=== PATIENT | male | born 1960 | race Two or more races ===

== ENCOUNTER 2017-09-23 17:13 | Emergency (ER) | payer OTHER ==
[~2017-09-23] VITALS: Ht 165.1 cm; Wt 74.8 kg
[~2017-09-23 17:13] MED LIST: KETO10TA2 PO; ORPH100T PO
== END 2017-09-23 22:18 | disposition home or self-care (01) ==
LOC: ER 17:13
DX: B34.9 Viral infection, unspecified (principal); E86.0 Dehydration

== ENCOUNTER 2018-02-20 07:15 | Emergency (ER) | payer OTHER ==
[~2018-02-20] VITALS: Ht 162.6 cm; Wt 68.0 kg
== END 2018-02-20 14:35 | disposition home or self-care (01) ==
LOC: ER 07:15
DX: R33.8 Other retention of urine (principal); N39.0 Urinary tract infection, site not specified

== ENCOUNTER → 2018-05-16 12:39 | Outpatient (CLI) | payer OTHER | END | disposition home or self-care (01) | LOC: RAD 12:39 | DX: N20.0 Calculus of kidney (principal) ==

== ENCOUNTER 2018-10-21 17:43 | Inpatient (IN) | payer OTHER ==
[~2018-10-21] VITALS: Ht 162.6 cm; Wt 68.0 kg
[2018-10-26] MEDS ORDERED: CEFDINIR300 MG PO (10:19)
[2018-10-26] MEDS ORDERED: AZITHROMYCIN500 MG PO (10:19)
[2018-10-26] MEDS ORDERED: ZANTAC150 M3 PO (10:20)
[2018-10-26] MEDS ORDERED: INTESTINEX680 M1 PO (10:20)
[2018-10-26] MEDS ORDERED: SYMBICORT 16010.2 GM IH (10:23)
[2018-10-26] MEDS ORDERED: PREDNISONE10 MG PO (10:26)
[2018-10-26] MEDS ORDERED: Neurin-Sl Tablet Sl SL (10:27)
== END 2018-10-26 12:07 | disposition home or self-care (01) | DRG 190 ==
LOC: ER 17:43 → EDBD 17:59 → ER 17:59 → MEDI 10-22 11:35 → SEC-K 10-22 13:06 → MEDI 10-22 13:47
PROVIDERS: ADMIT Internal Medicine
PROC: BW24ZZZ Computerized Tomography (CT Scan) of Chest and Abdomen (ICD-10-PCS; principal; 2018-10-22)
PROC: 4A033R1 Measurement of Arterial Saturation, Peripheral, Percutaneous Approach (ICD-10-PCS; 2018-10-22)
PROC: 3E0F7GC Introduction of Other Therapeutic Substance into Respiratory Tract, Via Natural or Artificial Opening (ICD-10-PCS; 2018-10-22)
DX: J44.1 Chronic obstructive pulmonary disease with (acute) exacerbation (principal); J80 Acute respiratory distress syndrome; J45.31 Mild persistent asthma with (acute) exacerbation; N39.0 Urinary tract infection, site not specified; J21.8 Acute bronchiolitis due to other specified organisms; J45.41 Moderate persistent asthma with (acute) exacerbation; F10.20 Alcohol dependence, uncomplicated; F17.218 Nicotine dependence, cigarettes, with other nicotine-induced disorders; N43.2 Other hydrocele; E86.0 Dehydration; E87.8 Other disorders of electrolyte and fluid balance, not elsewhere classified; R33.9 Retention of urine, unspecified

== ENCOUNTER 2019-10-11 00:16 | Emergency (ER) | payer OTHER ==
[~2019-10-11] VITALS: Ht 165.1 cm; Wt 85.3 kg
[~2019-10-11 00:16] MED LIST changes: +AZITHROMYCIN500 MG PO; +CEFDINIR300 MG PO; +INTESTINEX680 M1 PO; +Neurin-Sl Tablet Sl SL; +PREDNISONE10 MG PO; +SYMBICORT 16010.2 GM IH; +ZANTAC150 M3 PO
[2019-10-11] MEDS ORDERED: BACTRIM DS TAB1 EACH PO (06:35)
[2019-10-11] MEDS ORDERED: KETO10TA2 PO (06:35)
== END 2019-10-11 06:43 | disposition home or self-care (01) ==
LOC: ER 00:16
DX: N39.0 Urinary tract infection, site not specified (principal); R10.31 Right lower quadrant pain

== ENCOUNTER 2020-02-20 18:27 | Day surgery (SDC) | payer OTHER ==
[~2020-02-20] VITALS: Ht 165.1 cm; Wt 74.8 kg
[~2020-02-20 18:27] MED LIST changes: +BACTRIM DS TAB1 EACH PO
== END 2020-02-21 13:00 | disposition home or self-care (01) ==
LOC: ER 18:27 → CIR.AMB 02-21 07:00 → O/R 02-21 07:35 → ER 02-21 07:35 → EDSTATUS 02-21 10:00 → CIR.AMB 02-21 13:00 → O/R 02-21 17:45
PROVIDERS: ATTEND Surgery
DX: N43.2 Other hydrocele (principal); N45.3 Epididymo-orchitis; B95.7 Other staphylococcus as the cause of diseases classified elsewhere

== ENCOUNTER 2021-01-14 06:54 | Emergency (ER) | payer OTHER ==
[~2021-01-14] VITALS: Ht 162.6 cm; Wt 68.0 kg
[2021-01-14] MEDS ORDERED: KETO10TA2 PO (10:46)
[2021-01-14] MEDS ORDERED: NORFLEX100MG PO (10:46)
== END 2021-01-14 10:54 | disposition home or self-care (01) ==
LOC: ER 06:54
DX: M54.89 Other dorsalgia (principal)

== ENCOUNTER 2021-11-18 09:22 | Outpatient (CLI) | payer OTHER ==
[~2021-11-18 09:22] MED LIST changes: +NORFLEX100MG PO
== END 2021-11-18 09:35 | disposition home or self-care (01) ==
LOC: SONOGRAMA 09:22
PROVIDERS: ATTEND Surgery
DX: N45.2 Orchitis (principal)

== ENCOUNTER 2023-08-11 05:36 | Emergency (ER) | payer OTHER ==
[~2023-08-11] VITALS: Ht 165.1 cm; Wt 68.0 kg
[2023-08-11 07:30] LABS: HEMATOCRIT 41.1 % (39.0-48.0); HEMOGLOBIN 13.7 g/dL (13-16.00); MEAN CORPUSCULAR HEMOGLOBIN 30.2 pg (27.00-32.0); MEAN CORPUSCULAR HGB CONC 33.2 g/dl (32.0-36.0); PLATELET COUNT 178 K/uL (150-450); RED BLOOD COUNT 4.52 M/uL (4.00-6.00); RED CELL DISTRIBUTION WIDTH 13.2 % (11.5-14.5)
[2023-08-11 09:42] LABS: ALBUMIN 3.9 gm/dL (3.4-5.0); BILIRUBIN TOTAL 0.77 mg/dL (0.3-1.2); CALCIUM 10.5 mg/dL (8.5-10.1); CREATININE SERUM 0.8 mg/dL (0.70-1.30); GFR 98.27; GLOBULINA 4.4 G/DL (2.4-3.5); POTASSIUM 4.54 mEq/L (3.5-5.1); TOTAL PROTEIN 8.3 gm/dL (6.4-8.2)
== END 2023-08-11 12:37 | disposition home or self-care (01) ==
LOC: ER 05:36
DX: A09 Infectious gastroenteritis and colitis, unspecified (principal)

== ENCOUNTER 2023-09-04 03:54 | Emergency (ER) | payer OTHER ==
[~2023-09-04] VITALS: Ht 162.6 cm; Wt 68.0 kg
[2023-09-04 05:37] LABS: HEMATOCRIT 39.4 % (39.0-48.0); HEMOGLOBIN 13.1 g/dL (13-16.00); MEAN CELL VOLUME 88.5 fL (80.0-100.00); MEAN CORPUSCULAR HEMOGLOBIN 29.4 pg (27.00-32.0); MEAN CORPUSCULAR HGB CONC 33.2 g/dl (32.0-36.0); PLATELET COUNT 191 K/uL (150-450); RED BLOOD COUNT 4.45 M/uL (4.00-6.00); RED CELL DISTRIBUTION WIDTH 12.5 % (11.5-14.5)
[2023-09-04 05:50] LABS: INR 1.02; PARTIAL THROMBOPLASTIN TIME 27.1 SECONDS (22.0-34.0); PROTHROMBIN TIME 10.7 SECONDS (9.0-11.5)
[2023-09-04 05:55] LABS: ALBUMIN 3.5 gm/dL (3.4-5.0); BILIRUBIN TOTAL 0.56 mg/dL (0.3-1.2); BILIRUBIN,CONJUGATED 0.15 mg/dL (0.0-0.2); BILIRUBIN,UNCONJUGATED 0.41 mg/dL (0.0-0.6); CALCIUM 9.6 mg/dL (8.5-10.1); CREATININE SERUM 0.73 mg/dL (0.70-1.30); GFR 108.87; GLOBULINA 3.7 G/DL (2.4-3.5); POTASSIUM 4.05 mEq/L (3.5-5.1); TOTAL PROTEIN 7.2 gm/dL (6.4-8.2)
[2023-09-04 06:45] LABS: URINE APPEARANCE Clear; URINE BILIRRUBIN Negative (NEGATIVE); URINE BLOOD Negative; URINE COLOR Yellow; URINE GLUCOSE Negative (NEGATIVE); URINE LEUKOCYTE Negative; URINE NITRATE Negative; URINE PROTEIN Negative (NEGATIVE); URINE UROBILINOGEN 0.2 E.U./dl
[2023-09-04 06:49] LABS: URINE EPITHELIAL CELLS 9.5 uL (0.0-38.8)
[2023-09-04 07:01] LABS: URINE BACTERIA 1.2 uL (0.0-1933); URINE WBC 0.7 uL (0.0-23.2)
[2023-09-04 15:13] LABS: ALBUMIN 3.6 gm/dL (3.4-5.0); BILIRUBIN TOTAL 0.61 mg/dL (0.3-1.2); BILIRUBIN,CONJUGATED 0.17 mg/dL (0.0-0.2); BILIRUBIN,UNCONJUGATED 0.44 mg/dL (0.0-0.6); TOTAL PROTEIN 7.3 gm/dL (6.4-8.2)
== END 2023-09-04 18:03 | disposition home or self-care (01) ==
LOC: ER → EDBD 03:55 → ER 03:55
PROVIDERS: Emergency Medicine; General Practice
DX: K86.89 Other specified diseases of pancreas (principal); N32.89 Other specified disorders of bladder

== ENCOUNTER → 2023-09-08 09:45 | Outpatient (CLI) | payer OTHER ==
[2023-09-08 10:28] LABS: CREATININE SERUM 0.84 mg/dL (0.70-1.30)
== END | disposition home or self-care (01) ==
LOC: LAB 09:45
PROVIDERS: ATTEND Otolaryngology Otology & Neurotology
DX: K85.90 Acute pancreatitis without necrosis or infection, unspecified (principal); K86.9 Disease of pancreas, unspecified; R10.9 Unspecified abdominal pain

== ENCOUNTER 2023-09-08 10:05 | Outpatient (CLI) | payer OTHER | END 2023-09-08 10:17 | disposition home or self-care (01) | LOC: TOM 10:05 | PROVIDERS: ATTEND Specialist | DX: K85.90 Acute pancreatitis without necrosis or infection, unspecified (principal); K86.9 Disease of pancreas, unspecified; R11.2 Nausea with vomiting, unspecified; K21.9 Gastro-esophageal reflux disease without esophagitis ==

== ENCOUNTER 2023-11-04 08:19 | Emergency (ER) | payer OTHER ==
[~2023-11-04] VITALS: Ht 165.1 cm; Wt 68.0 kg
[2023-11-04] MEDS ORDERED: RINGERS SOLUTION,LACTATED 1,000 ML IV STA (09:15)
[2023-11-04] MEDS ORDERED: MORPHINE SULFATE 4 MG/ML VIAL IV STA (09:15)
[2023-11-04 09:38] LABS: HEMATOCRIT 39.4 % (39.0-48.0); HEMOGLOBIN 13.2 g/dL (13-16.00); MEAN CELL VOLUME 84.2 fL (80.0-100.00); MEAN CORPUSCULAR HEMOGLOBIN 28.2 pg (27.00-32.0); MEAN CORPUSCULAR HGB CONC 33.4 g/dl (32.0-36.0); PLATELET COUNT 183 K/uL (150-450); RED BLOOD COUNT 4.67 M/uL (4.00-6.00); RED CELL DISTRIBUTION WIDTH 12.6 % (11.5-14.5)
[2023-11-04 10:04] LABS: PH,URINE 5.5 (5.0-8.0); URINE APPEARANCE Clear; URINE BILIRRUBIN Negative (NEGATIVE); URINE BLOOD Negative; URINE COLOR Yellow; URINE GLUCOSE Negative (NEGATIVE); URINE LEUKOCYTE Small; URINE NITRATE Negative; URINE PROTEIN Negative (NEGATIVE); URINE UROBILINOGEN 0.2 E.U./dl
[2023-11-04 10:08] LABS: URINE BACTERIA 13.8 uL (0.0-1933); URINE EPITHELIAL CELLS 7.7 uL (0.0-38.8); URINE RBC 3.4 uL (0.0-20.8); URINE WBC 22.3 uL (0.0-23.2)
[2023-11-04 10:20] LABS: INR 1.02; PARTIAL THROMBOPLASTIN TIME 27.9 SECONDS (22.0-34.0); PROTHROMBIN TIME 10.7 SECONDS (9.0-11.5)
[2023-11-04 10:24] LABS: ALBUMIN 3.8 gm/dL (3.4-5.0); BILIRUBIN TOTAL 0.46 mg/dL (0.3-1.2); BILIRUBIN,CONJUGATED 0.11 mg/dL (0.0-0.2); BILIRUBIN,UNCONJUGATED 0.35 mg/dL (0.0-0.6); CALCIUM 9.8 mg/dL (8.5-10.1); CREATININE SERUM 0.85 mg/dL (0.70-1.30); GFR 91.33; POTASSIUM 3.86 mEq/L (3.5-5.1); TOTAL PROTEIN 7.8 gm/dL (6.4-8.2)
[2023-11-04 10:48] LABS: ABG PH 7.405 (7.35-7.45); ABG PO2 95.3 mmHg (80-100); ABG pCO2 35.2 mmHg (35-45)
[2023-11-04 10:49] LABS: BASE EXCESS -2.4 mmol/l; BICARBONATE 21.6 mmol/l (23-25); SaO2 97.4 %; Tco2 22.7 mmol/l; allen test SATISFACTORY; o2 21 %; puncture site RADIAL RIGHT
== END 2023-11-04 13:19 | disposition home or self-care (01) ==
LOC: ER 08:19
PROVIDERS: General Practice
DX: K86.3 Pseudocyst of pancreas (principal); R10.9 Unspecified abdominal pain; Z20.822 Contact with and (suspected) exposure to COVID-19
CPT/HCPCS: 36415; 74177; 82803; 93005; Q9965

== ENCOUNTER 2024-04-22 19:09 | Inpatient (IN) | payer OTHER ==
[~2024-04-22] VITALS: Ht 162.6 cm; Wt 63.5 kg
[2024-04-22] MEDS ORDERED: CONZIP100 MG (19:15)
--- NOTE | 2024-04-22 19:17 | NUR ---
PTE ALERTA Y ORIENTADO POR NIKIA ESFERAS CON BUEN PATRON RESPIRATORIO REFIERE QUE TIENE DOLOR ABDOMINAL DESDE HACE UNOS HERBERT ATRAS AYAD LA VEZ QUE LO HOSPITALIZARON POR PANCREATITIS. REFIERE TENER 2 VOMITOS Y VARIAS DIARREAS.
[2024-04-22] MEDS ORDERED: ONDANSETRON HCL 2 MG/ML VIAL IV ONE (19:30)
[2024-04-22] MEDS ORDERED: 0.9 % SODIUM CHLORIDE 1,000 ML IV SCH (19:30)
[2024-04-22] MEDS ORDERED: MORPHINE SULFATE 4 MG/ML VIAL IV ONE (19:30)
[2024-04-22] MEDS ORDERED: FAMOTIDINE/PF 20 MG/2 ML VIAL IV PUSH ONE (19:30)
[2024-04-22] MEDS ORDERED: FAMOTIDINE/PF 20 MG/2 ML VIAL ONE (19:35)
[2024-04-22] MEDS ORDERED: ONDANSETRON HCL 2 MG/ML VIAL ONE (19:35)
--- NOTE | 2024-04-22 19:35 | NUR ---
PACIENTE ALERTA Y ORIENTADO X3. SE ORIENTA SOBRE TX MEDICO Y REFIERE ENTENDER. SE REALIZAN MUESTRAS DE LAB BAJO MEDIDAS ASAEPTICAS. SE ABRE ACCESO VENOSO Y SE ADMINISTRAN MEDICAMENTOS GAVIN ORDEN MEDICA POR MISS DAVID RN.
[2024-04-22 19:59] LABS: HEMATOCRIT 39.5 % (39.0-48.0); HEMOGLOBIN 13.2 g/dL (13-16.00); MEAN CELL VOLUME 83.2 fL (80.0-100.00); MEAN CORPUSCULAR HEMOGLOBIN 27.7 pg (27.00-32.0); MEAN CORPUSCULAR HGB CONC 33.3 g/dl (32.0-36.0); PLATELET COUNT 229 K/uL (150-450); RED BLOOD COUNT 4.75 M/uL (4.00-6.00); RED CELL DISTRIBUTION WIDTH 13.7 % (11.5-14.5)
[2024-04-22 20:20] LABS: INR 1.02; PARTIAL THROMBOPLASTIN TIME 28.6 SECONDS (22.0-34.0); PROTHROMBIN TIME 10.7 SECONDS (9.0-11.5)
[2024-04-22 20:25] LABS: ALBUMIN 4.1 gm/dL (3.4-5.0); BILIRUBIN TOTAL 0.54 mg/dL (0.3-1.2); BILIRUBIN,CONJUGATED 0.12 mg/dL (0.0-0.2); BILIRUBIN,UNCONJUGATED 0.42 mg/dL (0.0-0.6); CALCIUM 10.3 mg/dL (8.5-10.1); CREATININE SERUM 0.88 mg/dL (0.70-1.30); GFR 87.75; GLOBULINA 4.2 G/DL (2.4-3.5); POTASSIUM 3.8 mEq/L (3.5-5.1); TOTAL PROTEIN 8.3 gm/dL (6.4-8.2)
[2024-04-22 22:09] LABS: URINE APPEARANCE Clear; URINE BILIRRUBIN Negative (NEGATIVE); URINE BLOOD Negative; URINE COLOR Yellow; URINE GLUCOSE Negative (NEGATIVE); URINE KETONE 15 (NEGATIVE); URINE LEUKOCYTE Small; URINE NITRATE Negative; URINE PROTEIN Negative (NEGATIVE)
[2024-04-22 22:12] LABS: URINE BACTERIA 351.4 uL (0.0-1933); URINE EPITHELIAL CELLS 19.9 uL (0.0-38.8); URINE RBC 11.1 uL (0.0-20.8); URINE WBC 25.6 uL (0.0-23.2)
[2024-04-22 22:14] LABS: URINE CAST 0.15 uL (0.0-1.40)
[2024-04-22] MEDS ORDERED: RINGERS SOLUTION,LACTATED 1,000 ML IV SCH (22:15)
[2024-04-22] MEDS ORDERED: ONDANSETRON HCL 4 MG in 0.9 % SODIUM CHLORIDE 50 ML IV PRN (22:15)
[2024-04-22] MEDS ORDERED: ENALAPRILAT DIHYDRATE 1.25 MG/ML VIAL IV PRN (22:15)
[2024-04-22] MEDS ORDERED: ACETAMINOPHEN 500 MG GEL..CAP PO PRN (22:15)
[2024-04-23] MEDS ORDERED: MORPHINE SULFATE 4 MG/ML VIAL IV SCH (01:00)
[2024-04-23 01:57] LABS: ABG PH 7.427 (7.35-7.45); ABG PO2 95.7 mmHg (80-100); ABG pCO2 35.9 mmHg (35-45)
[2024-04-23 01:58] LABS: BASE EXCESS -0.7 mmol/l; BICARBONATE 23.2 mmol/l (23-25); Tco2 24.3 mmol/l; allen test SATISFACTORY; o2 21 %; puncture site RADIAL LEFT
[2024-04-23 02:09] LABS: SaO2 97.6 %
[2024-04-23] MEDS ORDERED: FAMOTIDINE/PF 20 MG in 0.9 % SODIUM CHLORIDE 8 ML IV PUSH SCH (09:00)
[2024-04-23] MEDS ORDERED: ENOXAPARIN SODIUM 40 MG/0.4 ML SYRINGE SUBCUTANEO SCH (09:00)
[2024-04-23 09:55] LABS: INR 1.05
[2024-04-23 10:01] LABS: ALBUMIN 3.7 gm/dL (3.4-5.0); BILIRUBIN TOTAL 0.65 mg/dL (0.3-1.2); BILIRUBIN,CONJUGATED 0.16 mg/dL (0.0-0.2); BILIRUBIN,UNCONJUGATED 0.49 mg/dL (0.0-0.6); CALCIUM 9.6 mg/dL (8.5-10.1); CHOL HDL RATIO 4.4 (0-5.0); CREATININE SERUM 0.69 mg/dL (0.70-1.30); GFR 116.18; GLOBULINA 3.1 G/DL (2.4-3.5); TOTAL PROTEIN 6.8 gm/dL (6.4-8.2)
[2024-04-23 10:02] LABS: C-REACTIVE PROTEIN 0.36 MG/DL (0.00-0.29)
[2024-04-23 10:05] LABS: HEMATOCRIT 36.8 % (39.0-48.0); HEMOGLOBIN 12.3 g/dL (13-16.00); MEAN CELL VOLUME 85.2 fL (80.0-100.00); MEAN CORPUSCULAR HEMOGLOBIN 28.4 pg (27.00-32.0); MEAN CORPUSCULAR HGB CONC 33.3 g/dl (32.0-36.0); PLATELET COUNT 191 K/uL (150-450); RED BLOOD COUNT 4.32 M/uL (4.00-6.00); RED CELL DISTRIBUTION WIDTH 13.3 % (11.5-14.5)
[2024-04-23 10:57] LABS: ERYTHROCYTE SEDIMENTATION RATE 43 mm/hr
[2024-04-23] MEDS ORDERED: PIPERACILLIN/TAZOBACTAM SODIUM 3.375 GM VIAL IV SCH (12:00)
[2024-04-24] MEDS ORDERED: LOSARTAN POTASSIUM 50 MG TABLET PO SCH (14:19)
== END 2024-04-25 13:04 | disposition home or self-care (01) | DRG 440 ==
LOC: ER 19:11 → SURH 22:11
PROVIDERS: General Practice; ADMIT Internal Medicine; ATTEND Internal Medicine
PROC: BW21ZZZ Computerized Tomography (CT Scan) of Abdomen and Pelvis (ICD-10-PCS; principal; 2024-04-22)
PROC: BF37ZZZ Magnetic Resonance Imaging (MRI) of Pancreas (ICD-10-PCS; 2024-04-22)
DX: K85.90 Acute pancreatitis without necrosis or infection, unspecified (principal); E86.0 Dehydration

== ENCOUNTER 2024-06-17 15:59 | Inpatient (IN) | payer OTHER ==
[~2024-06-17] VITALS: Ht 152.4 cm; Wt 63.5 kg
[~2024-06-17 15:59] MED LIST changes: +CONZIP100 MG
[2024-06-17] MEDS ORDERED: ONDANSETRON HCL 2 MG/ML VIAL IV ONE (16:30)
[2024-06-17] MEDS ORDERED: MORPHINE SULFATE 4 MG/ML VIAL IV ONE (16:30)
[2024-06-17] MEDS ORDERED: FAMOtidine 10 MG/ML (4ML VIAL) IV ONE (16:30)
[2024-06-17] MEDS ORDERED: 0.9 % SODIUM CHLORIDE 1,000 ML IV ONE (16:30)
[2024-06-17 16:49] LABS: HEMATOCRIT 33.9 % (39.0-48.0); HEMOGLOBIN 11.3 g/dL (13-16.00); MEAN CELL VOLUME 83.4 fL (80.0-100.00); MEAN CORPUSCULAR HEMOGLOBIN 27.7 pg (27.00-32.0); MEAN CORPUSCULAR HGB CONC 33.2 g/dl (32.0-36.0); PLATELET COUNT 244 K/uL (150-450); RED BLOOD COUNT 4.06 M/uL (4.00-6.00)
[2024-06-17 16:53] LABS: ERYTHROCYTE SEDIMENTATION RATE 26 mm/hr
[2024-06-17 17:06] LABS: INR 1.19; PARTIAL THROMBOPLASTIN TIME 25.8 SECONDS (22.0-34.0); PROTHROMBIN TIME 12.8 SECONDS (9.0-11.5)
[2024-06-17 17:12] LABS: ALBUMIN 3.2 gm/dL (3.4-5.0); ALKALINE PHOSPHATASE 69 U/L (50-136); ALT/SGPT 16 U/L (12-78); AMYLASE 427 U/L (25-115); ANION GAP 10 (10.0-20.0); AST/SGOT 18 U/L (15-37); BLOOD UREA NITROGEN 12 mg/dL (7-18); BUN CREA RATIO 16 (7.0-25.0); CALCIUM 9.2 mg/dL (8.5-10.1); CARBON DIOXIDE 24 mEq/L (21-32); CHLORIDE 113 mmol/L (98-107); CREATININE SERUM 0.77 mg/dL (0.70-1.30); GFR 102.37; GLOBULINA 3.4 G/DL (2.4-3.5); GLUCOSE FASTING 100 mg/dL (65-100); OSMOLALITY SERUM 285 MOSM/KG (275-295); POTASSIUM 4.26 mEq/L (3.5-5.1); SODIUM 143 mmol/L (136-145); TOTAL PROTEIN 6.6 gm/dL (6.4-8.2)
[2024-06-17 17:13] LABS: C-REACTIVE PROTEIN < 0.29 MG/DL (0.00-0.29); LIPASE 353 U/L (13-75)
[2024-06-17] MEDS ORDERED: DEXTROSE 5 % AND 0.9 % NACL 1,000 ML IV SCH (21:45)
[2024-06-17] MEDS ORDERED: LACTOBACILLUS ACIDOPHILUS 1 CAP CAP PO SCH (21:56)
[2024-06-17] MEDS ORDERED: ACETAMINOPHEN 500 MG GEL..CAP PO PRN (22:00)
[2024-06-17] MEDS ORDERED: ONDANSETRON HCL 4 MG in DEXTROSE 5 % IN WATER 50 ML IV PRN (22:00)
[2024-06-17] MEDS ORDERED: ENALAPRILAT DIHYDRATE 1.25 MG/ML VIAL IV PRN (22:00)
[2024-06-18] MEDS ORDERED: PIPERACILLIN/TAZOBACTAM SODIUM 3.375 GM in 0.9 % SODIUM CHLORIDE 100 ML IV SCH
[2024-06-18 00:53] VITALS: BP 145/71; O2SAT 100
[2024-06-18] MEDS ORDERED: MORPHINE SULFATE 4 MG/ML VIAL IV SCH (01:00)
[2024-06-18 02:30] VITALS: BP 138/75
[2024-06-18 06:41] LABS: INR 1.21; PARTIAL THROMBOPLASTIN TIME 27.6 SECONDS (22.0-34.0)
[2024-06-18 06:57] LABS: HEMATOCRIT 29.7 % (39.0-48.0); HEMOGLOBIN 10.2 g/dL (13-16.00); MEAN CELL VOLUME 83.2 fL (80.0-100.00); MEAN CORPUSCULAR HEMOGLOBIN 28.6 pg (27.00-32.0); MEAN CORPUSCULAR HGB CONC 34.3 g/dl (32.0-36.0); PLATELET COUNT 216 K/uL (150-450); RED BLOOD COUNT 3.57 M/uL (4.00-6.00); RED CELL DISTRIBUTION WIDTH 14.8 % (11.5-14.5)
[2024-06-18 08:14] LABS: ALBUMIN 2.6 gm/dL (3.4-5.0); ALKALINE PHOSPHATASE 60 U/L (50-136); ALT/SGPT 13 U/L (12-78); AMYLASE 271 U/L (25-115); ANION GAP 8 (10.0-20.0); AST/SGOT 9 U/L (15-37); BILIRUBIN TOTAL 0.42 mg/dL (0.3-1.2); BILIRUBIN,CONJUGATED 0.12 mg/dL (0.0-0.2); BLOOD UREA NITROGEN 8 mg/dL (7-18); BUN CREA RATIO 14 (7.0-25.0); CALCIUM 8.5 mg/dL (8.5-10.1); CARBON DIOXIDE 26 mEq/L (21-32); CHLORIDE 113 mmol/L (98-107); CHOL HDL RATIO 5.3 (0-5.0); CHOLESTEROL 126 mg/dL (0-200); CREATININE SERUM 0.56 mg/dL (0.70-1.30); GFR 147.83; GLOBULINA 2.4 G/DL (2.4-3.5); GLUCOSE FASTING 109 mg/dL (65-100); HDL 24 mg/dl (40-60); LDL 86 mg/dl (0-130); OSMOLALITY SERUM 286 MOSM/KG (275-295); POTASSIUM 3.37 mEq/L (3.5-5.1); SODIUM 144 mmol/L (136-145); TRIGLYCERIDES 81 mg/dL (0-150); VLDL 16 (0-39)
[2024-06-18 08:19] VITALS: BP 126/73; O2SAT 99
[2024-06-18 08:21] LABS: C-REACTIVE PROTEIN < 0.29 MG/DL (0.00-0.29); LIPASE 145 U/L (13-75)
[2024-06-18] MEDS ORDERED: ENOXAPARIN SODIUM 40 MG/0.4 ML SYRINGE SUBCUTANEO SCH (09:00)
[2024-06-18] MEDS ORDERED: FAMOTIDINE/PF 20 MG in 0.9 % SODIUM CHLORIDE 8 ML IV PUSH SCH (09:00)
[2024-06-18 10:15] LABS: PH,URINE 5.5 (5.0-8.0); URINE APPEARANCE Clear; URINE BILIRRUBIN Negative (NEGATIVE); URINE BLOOD Negative; URINE COLOR Yellow; URINE EPITHELIAL CELLS 12.2 uL (0.0-38.8); URINE GLUCOSE Negative (NEGATIVE); URINE KETONE Negative (NEGATIVE); URINE LEUKOCYTE Negative; URINE NITRATE Negative; URINE PROTEIN Negative (NEGATIVE); URINE UROBILINOGEN 0.2 E.U./dl; URINE WBC 6.1 uL (0.0-23.2)
[2024-06-18 10:22] LABS: URINE CAST 0.61 uL (0.0-1.40); URINE RBC 1.8 uL (0.0-20.8)
[2024-06-18] MEDS ORDERED: MORPHINE SULFATE 4 MG/ML CARTRIDGE IV SCH (17:00)
[2024-06-18 17:23] VITALS: BP 157/79
[2024-06-19 02:29] VITALS: BP 116/68
[2024-06-19 08:25] VITALS: BP 140/80; O2SAT 99
[2024-06-19 08:38] LABS: ALBUMIN 2.4 gm/dL (3.4-5.0); BILIRUBIN TOTAL 0.33 mg/dL (0.3-1.2); CALCIUM 8.6 mg/dL (8.5-10.1); CREATININE SERUM 0.58 mg/dL (0.70-1.30); GFR 141.96; GLOBULINA 2.4 G/DL (2.4-3.5); POTASSIUM 3.54 mEq/L (3.5-5.1); TOTAL PROTEIN 4.8 gm/dL (6.4-8.2)
[2024-06-19 17:44] VITALS: BP 154/77
[2024-06-20 02:53] VITALS: BP 144/74; O2SAT 96
[2024-06-20 08:08] VITALS: BP 160/90
[2024-06-20] MEDS ORDERED: DIATRIZOATE MEGLUMINE, SODIUM 30 ML BOTTLE PO NR (14:30)
[2024-06-20 17:04] VITALS: BP 140/73
[2024-06-20 17:07] VITALS: BP 140/73
[2024-06-21 00:46] VITALS: BP 125/72; O2SAT 98
[2024-06-21 08:03] VITALS: BP 145/75
[2024-06-21 16:00] VITALS: BP 138/80; O2SAT 100
[2024-06-22 01:01] VITALS: BP 116/69; O2SAT 98
[2024-06-22 08:23] VITALS: BP 145/77; O2SAT 98
== END 2024-06-22 10:00 | disposition home or self-care (01) | DRG 439 ==
LOC: ER 16:01 → MEDI 22:28
PROVIDERS: General Practice; ADMIT Internal Medicine; ATTEND Internal Medicine
PROC: BW21Y0Z Computerized Tomography (CT Scan) of Abdomen and Pelvis using Other Contrast, Unenhanced and Enhanced (ICD-10-PCS; principal; 2024-06-17)
PROC: BF37ZZZ Magnetic Resonance Imaging (MRI) of Pancreas (ICD-10-PCS; 2024-06-17)
PROC: BW21Y0Z Computerized Tomography (CT Scan) of Abdomen and Pelvis using Other Contrast, Unenhanced and Enhanced (ICD-10-PCS; 2024-06-20)
DX: K85.80 Other acute pancreatitis without necrosis or infection (principal); K86.2 Cyst of pancreas; R18.8 Other ascites; K90.49 Malabsorption due to intolerance, not elsewhere classified; E86.0 Dehydration; F10.90 Alcohol use, unspecified, uncomplicated; Y90.9 Presence of alcohol in blood, level not specified

== ENCOUNTER 2024-07-21 11:17 | Emergency (ER) | payer OTHER ==
[~2024-07-21] VITALS: Ht 165.1 cm; Wt 61.2 kg
[2024-07-21] MEDS ORDERED: 0.9 % SODIUM CHLORIDE 1,000 ML IV STA (12:03)
[2024-07-21] MEDS ORDERED: PROMETHAZINE HCL 50 MG/ML AMPUL IM ONE (12:15)
[2024-07-21] MEDS ORDERED: MEPERIDINE HCL/PF 50 MG/ML VIAL IM ONE (12:15)
[2024-07-21 12:45] LABS: HEMATOCRIT 37.8 % (39.0-48.0); HEMOGLOBIN 12.9 g/dL (13-16.00); MEAN CELL VOLUME 85.7 fL (80.0-100.00); MEAN CORPUSCULAR HEMOGLOBIN 29.3 pg (27.00-32.0); MEAN CORPUSCULAR HGB CONC 34.1 g/dl (32.0-36.0); PLATELET COUNT 185 K/uL (150-450); RED BLOOD COUNT 4.41 M/uL (4.00-6.00); RED CELL DISTRIBUTION WIDTH 15.5 % (11.5-14.5)
[2024-07-21 13:07] LABS: CALCIUM 9.5 mg/dL (8.5-10.1); CREATININE SERUM 0.77 mg/dL (0.70-1.30); GFR 102.37; POTASSIUM 4.06 mEq/L (3.5-5.1)
[2024-07-21 14:50] LABS: PH,URINE 7.5 (5.0-8.0); URINE APPEARANCE Clear; URINE BILIRRUBIN Negative (NEGATIVE); URINE BLOOD Negative; URINE COLOR Yellow; URINE GLUCOSE Negative (NEGATIVE); URINE KETONE Negative (NEGATIVE); URINE LEUKOCYTE Negative; URINE NITRATE Negative; URINE PROTEIN Negative (NEGATIVE); URINE UROBILINOGEN 0.2 E.U./dl
[2024-07-21 14:53] LABS: URINE EPITHELIAL CELLS 8.6 uL (0.0-38.8); URINE RBC 2.1 uL (0.0-20.8); URINE WBC 2.4 uL (0.0-23.2)
[2024-07-21 15:20] LABS: URINE BACTERIA 3.7 uL (0.0-1933)
== END 2024-07-21 15:25 | disposition home or self-care (01) ==
LOC: ER 11:18
PROVIDERS: Emergency Medicine
DX: K29.70 Gastritis, unspecified, without bleeding (principal); R10.9 Unspecified abdominal pain

== ENCOUNTER 2024-09-07 07:52 | Inpatient (IN) | payer OTHER ==
[~2024-09-07] VITALS: Ht 165.1 cm; Wt 61.2 kg
--- NOTE | 2024-09-07 08:45 | NUR ---
PTE REFEIE DOLOR ABDOMINAL CUADRANTE INFERIO DERECHO CON NAUSEAS. SE LE JENNY S/V Y SE UBICA EN CAMACHO . PTE REFIERE QUE PADESE DE PANCRATITIS Y VARIAS VECES LO [facility].
[2024-09-07] MEDS ORDERED: RINGERS SOLUTION,LACTATED 1,000 ML IV STA (09:07)
[2024-09-07] MEDS ORDERED: MEPERIDINE HCL/PF 50 MG/ML VIAL IM STA (09:08)
[2024-09-07] MEDS ORDERED: PROMETHAZINE HCL 50 MG/ML AMPUL IM STA (09:08)
--- NOTE | 2024-09-07 09:27 | NUR ---
PTE EVALUADO POR EL DR. LE. FLORESITA KIRAN CANALIZA, COLECTA MUESTAR DE LAB Y ADMINISTRA MEDICAMENTO [facility] MEDICA BAJO MEDIDAS ASEPTICAS. SE NOTIFCIA CT PENDINTE.
[2024-09-07 09:51] LABS: HEMATOCRIT 36.7 % (39.0-48.0); MEAN CELL VOLUME 86.5 fL (80.0-100.00); MEAN CORPUSCULAR HEMOGLOBIN 28.4 pg (27.00-32.0); MEAN CORPUSCULAR HGB CONC 32.8 g/dl (32.0-36.0); PLATELET COUNT 191 K/uL (150-450); RED BLOOD COUNT 4.25 M/uL (4.00-6.00); RED CELL DISTRIBUTION WIDTH 14.6 % (11.5-14.5)
[2024-09-07 10:31] LABS: PARTIAL THROMBOPLASTIN TIME 27.8 SECONDS (22.0-34.0); PROTHROMBIN TIME 10.9 SECONDS (9.0-11.5)
[2024-09-07 12:08] LABS: ALBUMIN 3.4 gm/dL (3.4-5.0); BILIRUBIN TOTAL 0.45 mg/dL (0.3-1.2); BILIRUBIN,CONJUGATED 0.11 mg/dL (0.0-0.2); BILIRUBIN,UNCONJUGATED 0.34 mg/dL (0.0-0.6); CALCIUM 9.3 mg/dL (8.5-10.1); CREATININE SERUM 0.65 mg/dL (0.70-1.30); GFR 124.07; POTASSIUM 3.81 mEq/L (3.5-5.1); TOTAL PROTEIN 6.6 gm/dL (6.4-8.2)
[2024-09-07 13:55] LABS: URINE APPEARANCE Clear; URINE BILIRRUBIN Negative (NEGATIVE); URINE BLOOD Negative; URINE COLOR Yellow; URINE GLUCOSE Negative (NEGATIVE); URINE KETONE Negative (NEGATIVE); URINE LEUKOCYTE Negative; URINE NITRATE Negative; URINE PROTEIN Negative (NEGATIVE); URINE UROBILINOGEN 0.2 E.U./dl
[2024-09-07 13:58] LABS: URINE EPITHELIAL CELLS 7.5 uL (0.0-38.8)
[2024-09-07 14:02] LABS: URINE BACTERIA 1.2 uL (0.0-1933); URINE CAST 0.14 uL (0.0-1.40); URINE RBC 1.1 uL (0.0-20.8); URINE WBC 0.6 uL (0.0-23.2)
[2024-09-07 16:00] VITALS: BP 126/67; O2SAT 98
[2024-09-07] MEDS ORDERED: 0.9 % SODIUM CHLORIDE 1,000 ML IV SCH (17:30)
[2024-09-07] MEDS ORDERED: ACETAMINOPHEN 500 MG GEL..CAP PO PRN (17:30)
[2024-09-07] MEDS ORDERED: ONDANSETRON HCL 4 MG in 0.9 % SODIUM CHLORIDE 50 ML IV PRN (17:30)
[2024-09-07] MEDS ORDERED: THIAMINE HCL 100 MG/ML 2 ML VIAL IV SCH (17:38)
[2024-09-07] MEDS ORDERED: MORPHINE SULFATE 4 MG/ML CARTRIDGE IV PRN (17:45)
[2024-09-07] MEDS ORDERED: PEG3350/SOD SULF,BICARB,CL/KCL 4,000 ML GALLON PO ONE (17:45)
[2024-09-07] MEDS ORDERED: MORPHINE SULFATE 2 MG/ML CARTRIDGE IV SCH (20:00)
[2024-09-07] MEDS ORDERED: CIPROFLOXACIN IN 5 % DEXTROSE 200 ML IV SCH (21:00)
[2024-09-08 00:21] VITALS: BP 174/83; O2SAT 99
[2024-09-08] MEDS ORDERED: METRONIDAZOLE/SODIUM CHLORIDE 100 ML IV SCH (01:00)
[2024-09-08 02:05] VITALS: BP 184/96; O2SAT 99
[2024-09-08 08:00] VITALS: BP 170/80; O2SAT 100
[2024-09-08] MEDS ORDERED: ENALAPRILAT DIHYDRATE 1.25 MG/ML VIAL IV PRN (08:45)
[2024-09-08] MEDS ORDERED: FAMOTIDINE/PF 20 MG in 0.9 % SODIUM CHLORIDE 8 ML IV PUSH SCH (09:00)
[2024-09-08] MEDS ORDERED: CHLORDIAZEPOXIDE HCL 25 MG CAPSULE PO SCH (09:00)
[2024-09-08] MEDS ORDERED: NICOTINE 21MG/24HR PATCH.TD24 TD SCH (09:00)
[2024-09-08 10:44] LABS: ob NEGATIVE (NEGATIVE)
[2024-09-08] MEDS ORDERED: DIPHENHYDRAMINE HCL 50 MG/ML VIAL 1ML IV ONE (14:00)
[2024-09-08] MEDS ORDERED: fentaNYL CITRATE 50 MCG/ML AMPUL IV ONE (14:00)
[2024-09-08] MEDS ORDERED: MIDAZOLAM HCL 2 MG/2 ML VIAL IV ONE (14:00)
[2024-09-08 16:00] VITALS: BP 152/64; O2SAT 97
[2024-09-09] VITALS: BP 156/86; O2SAT 97
[2024-09-09 08:00] VITALS: BP 141/74; O2SAT 99
[2024-09-09] MEDS ORDERED: LOSARTAN POTASSIUM 50 MG TABLET PO NR (10:45)
[2024-09-09 16:00] VITALS: BP 147/75; O2SAT 98
[2024-09-10 01:15] VITALS: BP 150/86; O2SAT 99
[2024-09-10] MEDS ORDERED: LOSARTAN POTASSIUM 50 MG TABLET PO SCH (09:00)
[2024-09-10 09:15] VITALS: BP 133/77; O2SAT 95
== END 2024-09-10 13:28 | disposition home or self-care (01) | DRG 375 ==
LOC: ER 07:54 → SURH 18:38
PROVIDERS: General Practice; ADMIT Internal Medicine; ATTEND Internal Medicine
PROC: BW21ZZZ Computerized Tomography (CT Scan) of Abdomen and Pelvis (ICD-10-PCS; 2024-09-07)
PROC: 0DBP8ZX Excision of Rectum, Via Natural or Artificial Opening Endoscopic, Diagnostic (ICD-10-PCS; principal; 2024-09-08)
PROC: 0DBL8ZX Excision of Transverse Colon, Via Natural or Artificial Opening Endoscopic, Diagnostic (ICD-10-PCS; 2024-09-08)
PROC: BW30YZZ Magnetic Resonance Imaging (MRI) of Abdomen using Other Contrast (ICD-10-PCS; 2024-09-09)
DX: C20 Malignant neoplasm of rectum (principal); K86.1 Other chronic pancreatitis; E86.0 Dehydration; F10.20 Alcohol dependence, uncomplicated; D12.6 Benign neoplasm of colon, unspecified; K52.89 Other specified noninfective gastroenteritis and colitis
CPT/HCPCS: 74182

== ENCOUNTER 2024-11-09 09:00 | Inpatient (IN) | payer OTHER ==
[~2024-11-09] VITALS: Ht 165.1 cm; Wt 59.0 kg
[2024-11-17] MEDS ORDERED: CEFTRIAXONE SODIUM 2,000 MG VIAL ONE (13:46)
[2024-11-17] MEDS ORDERED: METRONIDAZOLE/SODIUM CHLORIDE 500 MG/100 ML PIGGYBACK IV ONE ×2 (13:46→15:15)
[2024-11-17] MEDS ORDERED: LIDOCAINE HCL 1%/EPINEPHRINE 20ML VIAL IJ ONE (13:46)
[2024-11-17] MEDS ORDERED: BUPIVACAINE HCL/MPF 0.5% 30ML VIAL ONE (13:46)
[2024-11-17] MEDS ORDERED: OxyCODONE HCL 5 MG TABLET (ROXICODONE) PO PRN (14:30)
[2024-11-17] MEDS ORDERED: DEXTROSE 50 % IN WATER 0.5 G/ML DISP.SYRIN IV PRN (14:30)
[2024-11-17] MEDS ORDERED: ONDANSETRON HCL 2 MG/ML VIAL IV PRN (14:30)
[2024-11-17] MEDS ORDERED: MORPHINE SULFATE 4 MG/ML CARTRIDGE IV PRN (14:30)
[2024-11-17] MEDS ORDERED: 0.9 % SODIUM CHLORIDE 1,000 ML IV SCH (14:30)
[2024-11-17] MEDS ORDERED: MORPHINE SULFATE 4 MG/ML VIAL IV ONE (16:55)
[2024-11-17] MEDS ORDERED: GABAPENTIN 300 MG CAPSULE PO SCH (17:00)
[2024-11-17] MEDS ORDERED: HYOSCYAMINE SULFATE 0.125 MG TAB.SUBL SL SCH (17:00)
[2024-11-17] MEDS ORDERED: METRONIDAZOLE/SODIUM CHLORIDE 500 MG/100 ML PIGGYBACK IV SCH (17:00)
[2024-11-17 17:55] LABS: HEMATOCRIT 35.2 % (39.0-48.0); HEMOGLOBIN 11.1 g/dL (13-16.00); MEAN CELL VOLUME 85.3 fL (80.0-100.00); MEAN CORPUSCULAR HEMOGLOBIN 26.9 pg (27.00-32.0); MEAN CORPUSCULAR HGB CONC 31.5 g/dl (32.0-36.0); PLATELET COUNT 166 K/uL (150-450); RED BLOOD COUNT 4.13 M/uL (4.00-6.00); RED CELL DISTRIBUTION WIDTH 14.1 % (11.5-14.5)
[2024-11-17 18:28] LABS: ALBUMIN 3.3 gm/dL (3.4-5.0); CALCIUM 8.9 mg/dL (8.5-10.1); CREATININE SERUM 0.73 mg/dL (0.70-1.30); GFR 108.52; PHOSPHOROUS 3.1 mg/dL (2.5-4.9); POTASSIUM 3.85 mEq/L (3.5-5.1)
[2024-11-17 18:29] LABS: MAGNESIUM 1.4 mg/dL (1.8-2.4)
[2024-11-17] MEDS ORDERED: ACETAMINOPHEN 500 MG GEL..CAP PO SCH (20:00)
[2024-11-17] MEDS ORDERED: CELECOXIB 200 MG CAPSULE PO ONE (20:17)
[2024-11-17] MEDS ORDERED: FAMOTIDINE/PF 20 MG/2 ML VIAL ONE (20:18)
[2024-11-17] MEDS ORDERED: FAMOTIDINE/PF 20 MG/2 ML VIAL IV PUSH SCH (21:00)
[2024-11-17] MEDS ORDERED: CELECOXIB 200 MG CAPSULE PO SCH (21:00)
[2024-11-18] VITALS: BP 107/65; O2SAT 97
[2024-11-18] MEDS ORDERED: CHLORDIAZEPOXIDE HCL 25 MG CAPSULE PO SCH (05:36)
[2024-11-18 07:03] LABS: HEMATOCRIT 32.6 % (39.0-48.0); HEMOGLOBIN 10.6 g/dL (13-16.00); MEAN CELL VOLUME 84.8 fL (80.0-100.00); MEAN CORPUSCULAR HEMOGLOBIN 27.6 pg (27.00-32.0); MEAN CORPUSCULAR HGB CONC 32.6 g/dl (32.0-36.0); PLATELET COUNT 160 K/uL (150-450); RED BLOOD COUNT 3.85 M/uL (4.00-6.00); RED CELL DISTRIBUTION WIDTH 14.1 % (11.5-14.5)
[2024-11-18 07:50] LABS: ALBUMIN 3.2 gm/dL (3.4-5.0); CALCIUM 8.7 mg/dL (8.5-10.1); CREATININE SERUM 0.67 mg/dL (0.70-1.30); GFR 119.8; MAGNESIUM 1.6 mg/dL (1.8-2.4); PHOSPHOROUS 3.1 mg/dL (2.5-4.9); POTASSIUM 4.01 mEq/L (3.5-5.1)
[2024-11-18 08:55] VITALS: BP 138/71; O2SAT 97
[2024-11-18] MEDS ORDERED: THIAMINE HCL 100 MG/ML 2 ML VIAL IV SCH (09:00)
[2024-11-18] MEDS ORDERED: NICOTINE 21MG/24HR PATCH.TD24 TD SCH (09:00)
[2024-11-18] MEDS ORDERED: MAGNESIUM SULFATE IN WATER 50 ML IV NR (10:00)
[2024-11-18] MEDS ORDERED: SOD FERRIC GLUC COMPLX/SUCROSE 62.5 MG in 0.9 % SODIUM CHLORIDE 50 ML IV SCH (10:00)
[2024-11-18] MEDS ORDERED: Cyanocobalamin/Mecobalamin 1 TAB.SL SL SCH (10:01)
[2024-11-18] MEDS ORDERED: ENOXAPARIN SODIUM 40 MG/0.4 ML SYRINGE SUBCUTANEO SCH (17:00)
[2024-11-18 17:43] VITALS: BP 123/65; O2SAT 96
[2024-11-19 00:30] VITALS: BP 109/66; O2SAT 98
[2024-11-19 07:55] LABS: CREATININE SERUM 0.75 mg/dL (0.70-1.30); GFR 105.18; HEMATOCRIT 32.2 % (39.0-48.0); HEMOGLOBIN 10.6 g/dL (13-16.00); MEAN CELL VOLUME 84.7 fL (80.0-100.00); MEAN CORPUSCULAR HEMOGLOBIN 27.8 pg (27.00-32.0); MEAN CORPUSCULAR HGB CONC 32.8 g/dl (32.0-36.0); PHOSPHOROUS 2.9 mg/dL (2.5-4.9); POTASSIUM 4.02 mEq/L (3.5-5.1); RED BLOOD COUNT 3.81 M/uL (4.00-6.00)
[2024-11-19 07:56] LABS: PLATELET COUNT 127 K/uL (150-450)
[2024-11-19 09:00] VITALS: BP 160/80; O2SAT 96
[2024-11-19] MEDS ORDERED: ENOXAPARIN SODIUM 40 MG/0.4 ML SYRINGE SUBCUTANEO SCH (09:00)
[2024-11-20] VITALS: BP 114/71; O2SAT 96
[2024-11-20 08:00] VITALS: BP 158/82; O2SAT 98
[2024-11-20] MEDS ORDERED: INTESTINEX680 M1 PO (11:31)
[2024-11-20] MEDS ORDERED: TRAM1TAB98 PO (11:32)
[2024-11-20] MEDS ORDERED: LEVSIN/SL0.125 MG SL (11:32)
== END 2024-11-20 13:41 | disposition home or self-care (01) | DRG 331 ==
LOC: O/R 11-17 07:09 → SURH 11-17 07:09
PROVIDERS: Internal Medicine Geriatric Medicine; ADMIT Surgery; ATTEND Surgery
PROC: 0DTP4ZZ Resection of Rectum, Percutaneous Endoscopic Approach (ICD-10-PCS; 2024-11-17)
PROC: 07BC4ZZ Excision of Pelvis Lymphatic, Percutaneous Endoscopic Approach (ICD-10-PCS; 2024-11-17)
PROC: 0DJD8ZZ Inspection of Lower Intestinal Tract, Via Natural or Artificial Opening Endoscopic (ICD-10-PCS; 2024-11-17)
PROC: 0DTN4ZZ Resection of Sigmoid Colon, Percutaneous Endoscopic Approach (ICD-10-PCS; principal; 2024-11-17 12:45)
DX: D12.7 Benign neoplasm of rectosigmoid junction (principal); R59.0 Localized enlarged lymph nodes; D64.89 Other specified anemias; R19.4 Change in bowel habit; R19.5 Other fecal abnormalities; F17.200 Nicotine dependence, unspecified, uncomplicated

== ENCOUNTER 2025-01-07 06:35 | Emergency (ER) | payer OTHER ==
[~2025-01-07] VITALS: Ht 165.1 cm; Wt 59.0 kg
[~2025-01-07 06:35] MED LIST changes: +LEVSIN/SL0.125 MG SL; +TRAM1TAB98 PO
[2025-01-07] MEDS ORDERED: METOCLOPRAMIDE HCL 5 MG/ML VIAL IM STA (07:27)
[2025-01-07] MEDS ORDERED: 0.9 % SODIUM CHLORIDE 1,000 ML IV STA (07:28)
[2025-01-07] MEDS ORDERED: FAMOtidine 10 MG/ML (4ML VIAL) IV PUSH STA (07:30)
[2025-01-07] MEDS ORDERED: METOCLOPRAMIDE HCL 5 MG/ML VIAL ONE (07:42)
[2025-01-07] MEDS ORDERED: FAMOTIDINE/PF 20 MG/2 ML VIAL ONE (07:43)
[2025-01-07] MEDS ORDERED: LACTULOSE 10 G/15 ML ML PO STA (07:46)
[2025-01-07] MEDS ORDERED: MINERAL OIL 30 ML BLIST.PACK PO STA (07:46)
[2025-01-07] MEDS ORDERED: MAGNESIUM HYDROXIDE 400 MG/5 ML ML PO STA (07:47)
[2025-01-07] MEDS ORDERED: HYDROGEN PEROXIDE 473 ML BOTTLE TOP ONE (07:47)
[2025-01-07 08:37] LABS: HEMATOCRIT 37.8 % (39.0-48.0); HEMOGLOBIN 12.6 g/dL (13-16.00); MEAN CELL VOLUME 83.8 fL (80.0-100.00); MEAN CORPUSCULAR HGB CONC 33.4 g/dl (32.0-36.0); PLATELET COUNT 161 K/uL (150-450); RED BLOOD COUNT 4.51 M/uL (4.00-6.00); RED CELL DISTRIBUTION WIDTH 13.7 % (11.5-14.5)
[2025-01-07] MEDS ORDERED: MINERAL OIL 30 ML BLIST.PACK ONE (08:40)
[2025-01-07] MEDS ORDERED: MAGNESIUM HYDROXIDE 30 ML BLIST.PACK PO ONE (08:41)
[2025-01-07] MEDS ORDERED: LACTULOSE 20 G/30 ML BLIST.PACK ONE (08:41)
[2025-01-07 09:09] LABS: BILIRUBIN TOTAL 0.73 mg/dL (0.3-1.2); CREATININE SERUM 0.79 mg/dL (0.70-1.30); GFR 99.06; GLOBULINA 3.8 G/DL (2.4-3.5); POTASSIUM 4.18 mEq/L (3.5-5.1); TOTAL PROTEIN 7.8 gm/dL (6.4-8.2)
[2025-01-07 09:14] LABS: PARTIAL THROMBOPLASTIN TIME 26.7 SECONDS (22.0-34.0); PROTHROMBIN TIME 10.9 SECONDS (9.0-11.5)
[2025-01-07] MEDS ORDERED: HYOSCYAMINE SULFATE 0.125 MG TAB.SUBL ONE (13:24)
[2025-01-07] MEDS ORDERED: HYOSCYAMINE SULFATE 0.125 MG TAB.SUBL SL ONE (13:30)
== END 2025-01-07 13:36 | disposition home or self-care (01) ==
LOC: ER 06:36
DX: K59.01 Slow transit constipation (principal); R10.9 Unspecified abdominal pain

== ENCOUNTER 2025-01-16 17:54 | Inpatient (IN) | payer OTHER ==
[~2025-01-16] VITALS: Ht 165.1 cm; Wt 68.0 kg
--- NOTE | 2025-01-16 18:44 | NUR ---
PTE ALERTA Y ORIENTADO X3 AMBULA A TRIAGE CON QUEJA PRINCIPAL DE DOLOR ABDOMINAL, NOTIFICA QUE PAYNE TENIDO DIFICULTAD PARA EVACUAR Y QUE EL JIMMY DE RIANNA TUVO NASUEAS CON UN VOMITO PROVOCADO. SE MIDEN SV Y SE UBICA. NOTIFICA MIAH SIDO OPERADO DE COLON EL .
[2025-01-16] MEDS ORDERED: FAMOTIDINE/PF 20 MG in 0.9 % SODIUM CHLORIDE 8 ML IV PUSH STA (18:54)
[2025-01-16] MEDS ORDERED: DIATRIZOATE MEGLUMINE, SODIUM 30 ML BOTTLE ONE (18:59)
[2025-01-16] MEDS ORDERED: KETOROLAC TROMETHAMINE 30 MG VIAL ONE (18:59)
[2025-01-16] MEDS ORDERED: FAMOTIDINE/PF 20 MG/2 ML VIAL ONE (18:59)
[2025-01-16] MEDS ORDERED: ONDANSETRON HCL 2 MG/ML VIAL ONE (18:59)
[2025-01-16] MEDS ORDERED: DIATRIZOATE MEGLUMINE, SODIUM 30 ML BOTTLE PO ONE (19:00)
[2025-01-16] MEDS ORDERED: ONDANSETRON HCL 2 MG/ML VIAL IV ONE (19:00)
[2025-01-16] MEDS ORDERED: KETOROLAC TROMETHAMINE 30 MG VIAL IV ONE (19:00)
[2025-01-16] MEDS ORDERED: 0.9 % SODIUM CHLORIDE 1,000 ML IV SCH (19:00)
--- NOTE | 2025-01-16 19:07 | NUR ---
SE ORIENTA A PACIENTE SOBRE TX MEDICO, REFIERE ENTENDER. SE COLECTAN MUESTRAS DE LABORATORIO BAJO MEDIDAS ASEPTICAS. SE ADMINISTRAN MEDICAMENTOS G[facility]IN ORDEN MEDICA. SE COORDINA CT. PENDIENTE RE-EVALUACION MEDICA.
[2025-01-16 19:25] LABS: HEMATOCRIT 36.8 % (39.0-48.0); MEAN CELL VOLUME 83.1 fL (80.0-100.00); MEAN CORPUSCULAR HEMOGLOBIN 27.1 pg (27.00-32.0); MEAN CORPUSCULAR HGB CONC 32.6 g/dl (32.0-36.0); PLATELET COUNT 322 K/uL (150-450); RED BLOOD COUNT 4.43 M/uL (4.00-6.00); RED CELL DISTRIBUTION WIDTH 13.8 % (11.5-14.5)
[2025-01-16 19:37] LABS: CALCIUM 10.6 mg/dL (8.5-10.1); POTASSIUM 4.4 mEq/L (3.5-5.1)
[2025-01-16 19:41] LABS: BILIRUBIN,CONJUGATED 0.11 mg/dL (0.0-0.2); CREATININE SERUM 0.7 mg/dL (0.70-1.30); GFR 113.9
[2025-01-16 19:42] LABS: BILIRUBIN TOTAL 0.27 mg/dL (0.3-1.2); BILIRUBIN,UNCONJUGATED 0.16 mg/dL (0.0-0.6); GLOBULINA 5.8 G/DL (2.4-3.5); TOTAL PROTEIN 8.8 gm/dL (6.4-8.2)
[2025-01-16] MEDS ORDERED: PIPERACILLIN/TAZOBACTAM SODIUM 3.375 GM VIAL IV ONE ×2 (20:30→20:46)
[2025-01-16] MEDS ORDERED: PANTOPRAZOLE SODIUM 40 MG/VIAL VIAL IV SCH (23:19)
[2025-01-16] MEDS ORDERED: NICOTINE 21MG/24HR PATCH.TD24 TD SCH (23:22)
[2025-01-16] MEDS ORDERED: ACETAMINOPHEN 500 MG GEL..CAP PO PRN (23:30)
[2025-01-16] MEDS ORDERED: RINGERS SOLUTION,LACTATED 1,000 ML IV SCH (23:30)
[2025-01-16] MEDS ORDERED: MORPHINE SULFATE 4 MG/ML CARTRIDGE IV PRN (23:30)
[2025-01-16] MEDS ORDERED: ONDANSETRON HCL 4 MG in 0.9 % SODIUM CHLORIDE 50 ML IV PRN (23:30)
[2025-01-17] MEDS ORDERED: PIPERACILLIN/TAZOBACTAM SODIUM 3.375 GM in DEXTROSE 5 % IN WATER 100 ML IV SCH
[2025-01-17] MEDS ORDERED: PIPERACILLIN/TAZOBACTAM SODIUM 3.375 GM VIAL IV ONE (00:32)
[2025-01-17 01:34] LABS: INR 1.17; PARTIAL THROMBOPLASTIN TIME 28.1 SECONDS (22.0-34.0); PROTHROMBIN TIME 12.6 SECONDS (9.0-11.5)
[2025-01-17 01:35] LABS: MAGNESIUM 1.7 mg/dL (1.8-2.4); PHOSPHOROUS 3.9 mg/dL (2.5-4.9)
[2025-01-17 02:05] LABS: C-REACTIVE PROTEIN 13.9 MG/DL (0.00-0.29)
[2025-01-17 03:57] VITALS: BP 132/73; O2SAT 97
[2025-01-17 04:14] LABS: ABG PH 7.499 (7.35-7.45); ABG PO2 143.5 mmHg (80-100); BASE EXCESS -0.8 mmol/l; BICARBONATE 20.9 mmol/l (23-25); SaO2 99.4 %; Tco2 21.7 mmol/l
[2025-01-17 04:15] LABS: allen test SATISFACTORY; mode NASAL CANNULA; o2 32 %; puncture site RADIAL RIGHT
[2025-01-17 04:16] LABS: ABG pCO2 27.5 mmHg (35-45)
[2025-01-17 06:57] LABS: URINE APPEARANCE Clear; URINE BILIRRUBIN Negative (NEGATIVE); URINE BLOOD Negative; URINE COLOR Dark Yellow; URINE GLUCOSE Negative (NEGATIVE); URINE KETONE 15 (NEGATIVE); URINE LEUKOCYTE Negative; URINE NITRATE Negative; URINE PROTEIN 30 (NEGATIVE)
[2025-01-17 06:59] LABS: URINE BACTERIA 28.1 uL (0.0-1933); URINE RBC 44.4 uL (0.0-20.8); URINE WBC 5.5 uL (0.0-23.2)
[2025-01-17 07:15] LABS: URINE CAST 0.14 uL (0.0-1.40)
[2025-01-17 07:17] LABS: URINE CRYSTALS MANY /HPF; URINE EPITHELIAL CELLS 0-4 /HPF
[2025-01-17 08:54] VITALS: BP 138/67
[2025-01-17 11:14] LABS: HEMATOCRIT 31.1 % (39.0-48.0); HEMOGLOBIN 10.2 g/dL (13-16.00); MEAN CELL VOLUME 82.8 fL (80.0-100.00); MEAN CORPUSCULAR HEMOGLOBIN 27.2 pg (27.00-32.0); MEAN CORPUSCULAR HGB CONC 32.9 g/dl (32.0-36.0); PLATELET COUNT 310 K/uL (150-450); RED BLOOD COUNT 3.76 M/uL (4.00-6.00); RED CELL DISTRIBUTION WIDTH 13.6 % (11.5-14.5)
[2025-01-17 11:54] LABS: ALBUMIN 2.6 gm/dL (3.4-5.0); BILIRUBIN TOTAL 0.4 mg/dL (0.3-1.2); CALCIUM 9.4 mg/dL (8.5-10.1); CREATININE SERUM 0.68 mg/dL (0.70-1.30); GFR 117.77; MAGNESIUM 1.8 mg/dL (1.8-2.4); TOTAL PROTEIN 6.6 gm/dL (6.4-8.2)
[2025-01-17 16:20] VITALS: BP 126/66; O2SAT 99
[2025-01-17] MEDS ORDERED: SOD FERRIC GLUC COMPLX/SUCROSE 62.5 MG in 0.9 % SODIUM CHLORIDE 50 ML IV SCH (17:00)
[2025-01-17] MEDS ORDERED: THIAMINE HCL 100 MG/ML 2 ML VIAL IV SCH (17:00)
[2025-01-17] MEDS ORDERED: NICOTINE 21MG/24HR PATCH.TD24 TD SCH (17:00)
[2025-01-18 02:49] VITALS: BP 127/69; O2SAT 95
[2025-01-18 08:56] VITALS: BP 128/71; O2SAT 97
[2025-01-18 18:36] VITALS: BP 163/78
[2025-01-19 02:21] VITALS: BP 112/64; O2SAT 95
[2025-01-19 06:14] LABS: HEMOGLOBIN 10.2 g/dL (13-16.00); MEAN CELL VOLUME 81.3 fL (80.0-100.00); MEAN CORPUSCULAR HEMOGLOBIN 27.5 pg (27.00-32.0); MEAN CORPUSCULAR HGB CONC 33.9 g/dl (32.0-36.0); PLATELET COUNT 368 K/uL (150-450); RED BLOOD COUNT 3.69 M/uL (4.00-6.00); RED CELL DISTRIBUTION WIDTH 13.5 % (11.5-14.5)
[2025-01-19 06:22] LABS: ERYTHROCYTE SEDIMENTATION RATE > 130 mm/hr
[2025-01-19 06:53] LABS: ALBUMIN 2.5 gm/dL (3.4-5.0); BILIRUBIN TOTAL 0.21 mg/dL (0.3-1.2); CALCIUM 9.2 mg/dL (8.5-10.1); CREATININE SERUM 0.68 mg/dL (0.70-1.30); GFR 117.77; GLOBULINA 3.7 G/DL (2.4-3.5); MAGNESIUM 1.7 mg/dL (1.8-2.4); PHOSPHOROUS 3.4 mg/dL (2.5-4.9); POTASSIUM 4.38 mEq/L (3.5-5.1); TOTAL PROTEIN 6.2 gm/dL (6.4-8.2)
[2025-01-19 06:58] LABS: C-REACTIVE PROTEIN 6.58 MG/DL (0.00-0.29)
[2025-01-19 07:01] VITALS: BP 137/70; O2SAT 98
[2025-01-19] MEDS ORDERED: MAGNESIUM SULFATE IN WATER 50 ML IV NR (12:15)
[2025-01-19] MEDS ORDERED: AMINO ACIDS/PROTEIN HYDROLYS 30 ML BLIST.PACK PO SCH (17:00)
[2025-01-20 01:43] VITALS: BP 135/74; O2SAT 99
[2025-01-20 07:05] VITALS: BP 140/84; O2SAT 98
[2025-01-20] MEDS ORDERED: ENOXAPARIN SODIUM 40 MG/0.4 ML SYRINGE SUBCUTANEO NR (13:00)
[2025-01-20] MEDS ORDERED: PANTOPRAZOLE SODIUM 40 MG TABLET.DR PO SCH (17:00)
[2025-01-20] MEDS ORDERED: LACTOBACILLUS ACIDOPHILUS 1 CAP CAP PO SCH (17:00)
[2025-01-20] MEDS ORDERED: AMINO ACIDS 1 EACH TABLET PO SCH (17:00)
[2025-01-20 18:14] VITALS: BP 170/93
[2025-01-21 02:54] VITALS: BP 152/78; O2SAT 99
[2025-01-21] MEDS ORDERED: ENOXAPARIN SODIUM 40 MG/0.4 ML SYRINGE SUBCUTANEO SCH (09:00)
[2025-01-21 18:36] VITALS: BP 154/76
[2025-01-22 02:00] VITALS: BP 106/57; O2SAT 98
[2025-01-22 09:01] VITALS: BP 143/89
[2025-01-22] MEDS ORDERED: VITAMIN B-1100 MG PO (14:29)
[2025-01-22] MEDS ORDERED: PROTONIX40 MG PO (14:29)
[2025-01-22] MEDS ORDERED: PRE PROTEIN1 EACH PO (14:29)
[2025-01-22] MEDS ORDERED: INTESTINEX680 M2 PO (14:29)
[2025-01-22] MEDS ORDERED: ABANEU-SL TABL1 EACH SL (14:29)
== END 2025-01-22 16:45 | disposition home or self-care (01) | DRG 438 ==
LOC: ER 17:55 → SEC-K 23:21 → MEDJ 23:21 → SEC-K 01-17 00:53 → MEDJ 01-17 00:53 → ER 01-17 00:53 → SEC-K 01-17 01:36 → MEDJ 01-17 01:36
PROVIDERS: General Practice; ADMIT Internal Medicine Geriatric Medicine; ATTEND Internal Medicine Geriatric Medicine
PROC: BW21YZZ Computerized Tomography (CT Scan) of Abdomen and Pelvis using Other Contrast (ICD-10-PCS; principal; 2025-01-16)
PROC: 02HV33Z Insertion of Infusion Device into Superior Vena Cava, Percutaneous Approach (ICD-10-PCS; 2025-01-19)
PROC: BW30ZZZ Magnetic Resonance Imaging (MRI) of Abdomen (ICD-10-PCS; 2025-01-20)
DX: K85.90 Acute pancreatitis without necrosis or infection, unspecified (principal); A41.9 Sepsis, unspecified organism; R65.10 Systemic inflammatory response syndrome (SIRS) of non-infectious origin without acute organ dysfunction; K29.70 Gastritis, unspecified, without bleeding
CPT/HCPCS: 74185